=== PATIENT | male | born 1960 | race Caucasian/White ===

== ENCOUNTER 2021-02-17 23:36 | Inpatient (IN) | payer OTHER ==
[~2021-02-17] VITALS: Ht 190.5 cm; Wt 69.1 kg
[2021-02-18 00:21] LABS: BASOPHILS ABSOLUTE AUTO 0.16 K/mm3 (0.00-0.23); BASOPHILS PERCENT AUTO 1 % (0-2); EOSINOPHILS ABSOLUTE AUTO 0.18 K/mm3 (0.00-0.68); EOSINOPHILS PERCENT AUTO 1 % (0-6); Hematocrit 41.2 % (37.0-53.0); IMMATURE GRAN ABSOLUTE AUTO 0.57 K/mm3 (0.00-0.10); IMMATURE GRAN PERCENT AUTO 2 % (0-1); LYMPHOCYTES PERCENT AUTO 9 % (21-46); MONOCYTES ABSOLUTE AUTO 1.65 K/mm3 (0.16-1.47); MONOCYTES PERCENT AUTO 6 % (4-13); Mean Corpuscular HGB 31.5 pg (26.0-34.0); Mean Corpuscular Volume 93 fL (80-100); Mean Platelet Volume 9.3 fL (9.1-12.4); NEUTROPHILS ABSOLUTE AUTO 21.13 K/mm3 (1.96-9.15); NEUTROPHILS PERCENT AUTO 81 % (41-73); Platelet Count 307 K/mm3 (150-400); RDW Coefficient Variation 13.2 % (11.7-14.2); RDW Standard Deviation 45.4 fL (35.1-46.3); Red Blood Cell Count 4.44 M/mm3 (4.30-5.90); White Blood Cell Count 26.09 K/mm3 (4.00-11.30)
[2021-02-18 00:35] LABS: Alanine Aminotransfer (ALT/SGP 39 U/L (12-78); Albumin, Blood 3.8 g/dL (3.4-5.0); Albumin/Globulin Ratio 1.1 (0.8-1.8); Alk Phos 107 U/L (50-136); Anion Gap 6 mmol/L (6-16); Aspartate Aminotrans (AST/SGOT 38 U/L (12-37); Bilirubin, Total 0.2 mg/dL (0.1-1.0); Blood Urea Nitrogen 21 mg/dL (8-24); Bun/Creatinine Ratio 20.2 (12.0-20.0); CO2, Blood 30 mmol/L (21-32); Calcium, Blood 9.3 mg/dL (8.5-10.1); Chloride, Blood 106 mmol/L (98-108); Creatinine, Blood 1.04 mg/dL (0.60-1.20); Ethanol (Alcohol), Blood, Med <3 mg/dL; Globulin, Blood 3.5 g/dL (2.2-4.0); Glomerular Filtration Rate >60 (60-); Glucose, Blood 140 mg/dL (70-99); International Normalized Ratio 1.02; Potassium, Blood 3.6 mmol/L (3.5-5.5); Sodium, Blood 142 mmol/L (136-145); Total Protein, Blood 7.3 g/dL (6.4-8.2)
[2021-02-18 04:47] LABS: SARS-Cov-2 (COVID-19) PCR, MMC NEGATIVE (NEGATIVE)
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
[2021-02-18 12:06] LABS: U Amphetamine Screen Not Detected; U Barbituate Screen Not Detected; U Benzodiazapine Screen Not Detected; U Cocaine Screen Not Detected; U Methadone Screen Not Detected; U Methamphetamine Screen Not Detected
[2021-02-18 12:07] LABS: U Buprenorphine Screen Not Detected; U Cannabinoids Screen DETECTED; U Opiates Screen DETECTED; U Oxycodone Screen Not Detected; U Phencyclidine Screen Not Detected; U Propoxyphene Screen Not Detected
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
[2021-02-19 05:24] LABS: Hematocrit 31.9 % (37.0-53.0); Hemoglobin 10.7 g/dL (13.5-17.5); Mean Corpuscular HGB Conc 33.5 g/dL (31.5-36.5); Mean Corpuscular Volume 93 fL (80-100); Platelet Count 152 K/mm3 (150-400); RDW Coefficient Variation 12.9 % (11.7-14.2); RDW Standard Deviation 43.9 fL (35.1-46.3); Red Blood Cell Count 3.45 M/mm3 (4.30-5.90); White Blood Cell Count 15.63 K/mm3 (4.00-11.30)
[2021-02-19 05:41] LABS: Anion Gap 4 mmol/L (6-16); Blood Urea Nitrogen 17 mg/dL (8-24); Bun/Creatinine Ratio 19.5 (12.0-20.0); CO2, Blood 28 mmol/L (21-32); Chloride, Blood 105 mmol/L (98-108); Creatinine, Blood 0.87 mg/dL (0.60-1.20); Glomerular Filtration Rate >60 (60-); Glucose, Blood 109 mg/dL (70-99); Sodium, Blood 137 mmol/L (136-145)
--- NOTE | 2021-02-19 06:26 | NUR ---
SHIFT SUMMARY PT RESTED WELL T/O NIGHT. AAOX4. DISCOMFORT CONTROLLED WITH 1 ROXICODONE Q4-6P + TORADOL Q6P. NO NAUSEA/EMESIS. LUNG SOUNDS DIMINISHED T/O, 4L VIA NC. CHEST TUBE TO LEFT CHEST WALL, SECURE WITH SCANT SS DRAINAGE OUT. PPP, DENIES N/T, MOVES ALL TOES/FINGERS WELL. PT ABLE TO REPOSITION SELF IN BED, CONTINUE TO ENCOURAGE + DEEP BREATHING TOLERATED. AWAITING CHEST X-RAY THIS AM. NO ACUTE CHANGES OVER NIGHT. PT CURRENTLY RESTING IN BED WITH CALL LIGHT IN REACH.
[2021-02-19 15:59] LABS: Hematocrit 30.3 % (37.0-53.0); Hemoglobin 10.2 g/dL (13.5-17.5); Mean Corpuscular HGB 31.6 pg (26.0-34.0); Mean Corpuscular HGB Conc 33.7 g/dL (31.5-36.5); Mean Corpuscular Volume 94 fL (80-100); Mean Platelet Volume 9.8 fL (9.1-12.4); Platelet Count 153 K/mm3 (150-400); RDW Coefficient Variation 12.9 % (11.7-14.2); RDW Standard Deviation 44.8 fL (35.1-46.3); Red Blood Cell Count 3.23 M/mm3 (4.30-5.90); White Blood Cell Count 14.96 K/mm3 (4.00-11.30)
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
--- NOTE | 2021-02-20 04:30 | NUR ---
SHIFT SUMMARY PT RESTED WELL T/O NIGHT. AAOX4. DISCOMFORT CONTROLLED WITH ROXICODONE Q4H + TORADOL Q6H. NO NAUSEA/EMESIS. 3.5L VIA NC, SHALLOW BREATHS R/T DISCOMFORT, CHEST TUBE WITH MINIMAL SS OUT. CONTINUE TO ENCOURAGE DEEP BREATHING CHRISTOFER. DENIES N/T BLE, MOVES ALL TOES/FINGERS WELL, ALL PULSES PALPABLE ON EXTREMITIES. ABRASIONS WITH PETROLIUM GAUZE + OTHERS ALISON. NO ACUTE CHANGES OVER NIGHT. PT CURRENTLY RESTING WELL IN BED WITH CALL LIGHT IN REACH.
[2021-02-20 16:37] LABS: Hematocrit 24.3 % (37.0-53.0); Hemoglobin 8.3 g/dL (13.5-17.5)
--- NOTE | 2021-02-20 19:55 | NUR ---
RECEIVED BEDSIDE REPORT W/DAY RN. PT REP FEELING SOB. PT HAD REMOVED NC. SATS CHECKED, READING 74 ON RA, HR 120'S. 6L NC REPLACED, SATS UNABLE TO RETURN >85%. CHEST TUBE ASSESSED, BUBBLING AND FLUCTUATION PRESENT. SITE APPEARS WNL. 15L OXYMIZER PLACED, O2 INC TO 94%, O2 DECREASED TO 12L, SATS 91-92%. WILL MONITOR AND TIRTATE PRN. PT REP LESS AOB AFTER O2 REPLACED. PT EDUCATED TO KEEP O2 IN PLACE.
[2021-02-20 21:48] LABS: Hematocrit 22.6 % (37.0-53.0); Hemoglobin 7.9 g/dL (13.5-17.5)
[2021-02-21 04:50] LABS: Hematocrit 22.1 % (37.0-53.0); Hemoglobin 7.8 g/dL (13.5-17.5); Mean Corpuscular HGB 31.6 pg (26.0-34.0); Mean Corpuscular HGB Conc 35.3 g/dL (31.5-36.5); Mean Corpuscular Volume 90 fL (80-100); Mean Platelet Volume 10.1 fL (9.1-12.4); Platelet Count 182 K/mm3 (150-400); RDW Coefficient Variation 12.4 % (11.7-14.2); RDW Standard Deviation 40.8 fL (35.1-46.3); Red Blood Cell Count 2.47 M/mm3 (4.30-5.90); White Blood Cell Count 17.84 K/mm3 (4.00-11.30)
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
--- NOTE | 2021-02-21 07:47 | NUR ---
2 TABLETS OF 2.5MG MARINOL WASTED W/HAMILTON MONSALVE RN @ [id number].
--- NOTE | 2021-02-21 07:48 | NUR ---
WASTE OF MARINOL: PATIENT DECLINED SCHEDULED MARINOL THIS MORNING. WASTED 5MG (TWO TABLETS OF 2.5MG) WITH IMER CARREON AT 07:45.
--- NOTE | 2021-02-21 18:06 | NUR ---
SHIFT SUMMARY PT HAS DONE WELL T/O SHIFT. CHEST TUBE IN PLACE L LATERAL CHEST TO SX W/MINIMAL SS OUTPUT PRESENT IN CANISTER-NO CREPATIS T/O SHIFT. PAIN MANAGED PER EMAR. PT WORKED WITH THERAPY, UP TO CHAIR FOR LUNCH. PT HAS DECLINED MARINOL T/O SHIFT.
--- NOTE | 2021-02-21 19:30 | NUR ---
PT SITTING IN BED, 5LO2 NC IN PLACE, RESP E/U. PT REP PAIN W/DEEP BREATHS, BUT DENIES SOB AT REST. CT TO SX, BUBBLING AND FLUCTUATING, NO DRNG IN TUBING, NO CRESPIUS NOTED. PT REP PAIN CHRISTOFER AT THIS TIME.
--- NOTE | 2021-02-21 22:48 | NUR ---
PT IS A/O X3 AND IN GOOD SPIRITS THIS EVENING. OXYGEN AT 5L PER NC, SATS 90-92%. CHEST TUBE TO LEFT CHEST, DRESSING CDI. CHEST TUBE TIDALLING WELL WITH NO AIR LEAKS. CBS. STILL HAS DISCOMFORT WITH TAKING IN DEEPER BREATHS. PT ENCOURAGED TO USE I/S. PER CXR, BETTER AERATION TO LLL TODAY COMPARED TO YEST. STARTED IV UNASYN TODAY. BT'S POS X4. NO GI UPSET, NO N/V. REPORTS LAST BM BEFORE HOSPITALIATION. URINATING W/O DIFFICULTY. EATING WELL. EDUCATED AND REMINDED PT TO ASK FOR ASSISTANCE WHEN/IF HE WANTS TO GET OOB.
--- NOTE | 2021-02-22 06:47 | NUR ---
CHEST TUBE TO SUCTION. NO AIR LEAKS. TIDALLING WELL. CT INSERTION SITE COVERED WITH GAUZE DRSG. DRSG CDI. PAIN MANAGED WELL DURING THE NIGHT WITH TORADOL AND OXYCODONE. ON IV ABX Q6H.
--- NOTE | 2021-02-22 17:16 | NUR ---
SUMMARY NO ACUTE CHANGES T/O SHIFT. PT WORKED W/THERAPY AND SAT UP IN CHAIR THIS AM. PT PAINFUL. MEDICATED PER ORDERS FOR PAIN TO L SHOULDER/L SIDE. TOLERATING PO INTAKE. CT TO LWS. SS DRAINAGE NOTED. CALL LIGHT IN REACH.
--- NOTE | 2021-02-22 19:05 | NUR ---
report given to oncoming shift.
--- NOTE | 2021-02-23 06:52 | NUR ---
SHIFT SUMMARY POD3 L CHEST TUBE PLACEMENT, A/O X4, VSS, TOLERATING PO, SBA c AMBULATION, PAIN MANAGED PER EMAR, CHEST TUBE TO WATER SEAL T/O SHIFT, NO CREPITUS NOTED, DIMINISHED LLL c EXPIRATORY WHEEZE, PT DENIES SOB. NO ACUTE EVENTS THIS SHIFT. CALL LIGHT IN REACH, WILL CTM AND REPORT TO DAY RN.
--- NOTE | 2021-02-23 14:19 | NUR ---
DR KOENIG HERE TO SEE PATIENT. CHEST TUBE REMOVED BY DR KOENIG AFTER PATIENT MEDICATED WITH 0.5 MG IV DILAUDID. PURSE STRING SUTURE, 4X4 GAUZE AND TEGADERM APPLIED TO CHEST TUBE REMOVAL SITE. PATIENT DENIES ANY INCREASE IN PAIN OR SOB AFTER TUBE REMOVED. PT RESTING WITH EYES CLOSED, REPORTS PAIN IS MUCH DECREASED
[2021-02-23] MEDS ORDERED: OXAYDO5 M1 PO (17:23)
--- NOTE | 2021-02-23 18:52 | NUR ---
SHIFT SUMMARY PT POD #3 FOR L CHEST TUBE PLACEMENT. CHEST TUBE REMOVED AND X-RAY OBTAINED. NO ABNORMAL FINDINGS ON THE X-RAY AND PT CLEARED FOR DISCHARGE. MEDICATED PER EMR AND TOLERATING ORAL PAIN MEDICATION. AMBULATES WITH A 1 PERSON/SBA. DISCHARGE ORDERS IN CHART. VSS. WILL REPORT TO ONCOMING RN.
--- NOTE | 2021-02-23 21:41 | NUR ---
PT REQ TO D/C IN AM R/T UNABLE TO [employer] FOR PAIN MEDS. DR KOENIG NOTIFIED; OK W/PLAN.
--- NOTE | 2021-02-24 10:11 | NUR ---
DISCHARGE PT DISCHARGED HOME FROM UNIT AT APROX 1012. PT GIVEN WRITTEN AND VERBAL DISCHARGE INSTRUCTIONS AND VERBALIZED UNDERSTANDING. WHEELCHAIR ASSIST TO CAR. WRITTEN RX FOR PAIN MEDICATION GIVEN TO PT, COPY IN CHART.
== END 2021-02-24 10:15 | disposition home or self-care (01) | DRG 964 ==
LOC: ER 23:36 → SURS 02-18 02:18
PROVIDERS: Student in an Organized Health Care Education/Training Program; ADMIT Surgery
PROC: 0W9B30Z Drainage of Left Pleural Cavity with Drainage Device, Percutaneous Approach (ICD-10-PCS; principal; 2021-02-20)
DX: S27.1XXA Traumatic hemothorax, initial encounter (principal); S72.112A Displaced fracture of greater trochanter of left femur, initial encounter for closed fracture; S22.42XA Multiple fractures of ribs, left side, initial encounter for closed fracture; S27.321A Contusion of lung, unilateral, initial encounter; S32.10XA Unspecified fracture of sacrum, initial encounter for closed fracture; Z20.822 Contact with and (suspected) exposure to COVID-19; V29.49XA Motorcycle driver injured in collision with other motor vehicles in traffic accident, initial encounter; Y93.89 Activity, other specified; Y92.410 Unspecified street and highway as the place of occurrence of the external cause; I10 Essential (primary) hypertension; J44.9 Chronic obstructive pulmonary disease, unspecified; S42.102A Fracture of unspecified part of scapula, left shoulder, initial encounter for closed fracture; S42.002A Fracture of unspecified part of left clavicle, initial encounter for closed fracture; D64.9 Anemia, unspecified
CPT/HCPCS: 32551; 36415; 70450; 71045; 71046; 71260; 71275; 72126; 73060; 73502; 73552; 73562-LT; 74177; 80048; 80053; 83735; 84145; 85014; 85018; 85025; 85027; 85610; 86850; 86900; 86901; 87040; 93005; 93010; 96361; 96374; 96375; 96376; 97110; 97162; 97167; 97530; 97535; 99285-25; A9270; G0480; J0295; J1170; J1650; J1885; J3010; J7030; Q0167; Q9967; U0004

== ENCOUNTER 2024-08-10 19:47 | Emergency (ER) | payer OTHER ==
[~2024-08-10] VITALS: Ht 190.5 cm; Wt 63.5 kg
[~2024-08-10 19:47] MED LIST: OXAYDO5 M1 PO
[2024-08-10 20:58] LABS: BASOPHILS ABSOLUTE AUTO 0.08 K/mm3 (0.00-0.23); BASOPHILS PERCENT AUTO 1 % (0-2); EOSINOPHILS ABSOLUTE AUTO 0.02 K/mm3 (0.00-0.68); EOSINOPHILS PERCENT AUTO 0 % (0-6); Hematocrit 47.5 % (37.0-53.0); Hemoglobin 16.5 g/dL (13.5-17.5); IMMATURE GRAN ABSOLUTE AUTO 0.06 K/mm3 (0.00-0.10); IMMATURE GRAN PERCENT AUTO 0 % (0-1); LYMPHOCYTES ABSOLUTE AUTO 1.09 K/mm3 (0.84-5.20); LYMPHOCYTES PERCENT AUTO 6 % (21-46); MONOCYTES ABSOLUTE AUTO 1.15 K/mm3 (0.16-1.47); MONOCYTES PERCENT AUTO 7 % (4-13); Mean Corpuscular HGB 31.3 pg (26.0-34.0); Mean Corpuscular HGB Conc 34.7 g/dL (31.5-36.5); Mean Corpuscular Volume 90 fL (80-100); Mean Platelet Volume 9.6 fL (9.1-12.4); NEUTROPHILS PERCENT AUTO 86 % (41-73); Platelet Count 277 K/mm3 (150-400); RDW Coefficient Variation 12.8 % (11.7-14.2); RDW Standard Deviation 42.4 fL (35.1-46.3); Red Blood Cell Count 5.27 M/mm3 (4.30-5.90)
[2024-08-10 21:22] LABS: Albumin, Blood 4.1 g/dL (3.4-5.0); Albumin/Globulin Ratio 0.9 (0.8-1.8); Bilirubin, Total 1.3 mg/dL (0.1-1.0); Bun/Creatinine Ratio 15.1 (12.0-20.0); Calcium, Blood 9.6 mg/dL (8.5-10.1); Creatinine, Blood 0.86 mg/dL (0.60-1.20); Globulin, Blood 4.4 g/dL (2.2-4.0); Total Protein, Blood 8.5 g/dL (6.4-8.2)
[2024-08-10 22:36] LABS: Source, Urine Clean Catch
[2024-08-10 22:52] LABS: Appearance, Urine Clear (Clear); Bilirubin, Urine Neg (Neg); Blood, Urine Neg (Neg); Color, Urine Amber (P-Yellow); Glucose Qualitative, Urine Neg (Neg); Ketones, Urine 3+ (Neg); Leukocyte Esterase, Urine 1+ (Neg); Nitrite, Urine Neg (Neg); Protein, Urine 1+ (Neg); Urobilinogen, Urine 1+ (Normal)
[2024-08-10 23:01] LABS: Bacteria Few /hpf; Mucus Light (0-Heavy); Red Blood Cells, Urine 0-2 /hpf (0-2); Squamous Epithelial Cells Few /hpf (Few); White Blood Cells, Urine 0-2 /hpf (0-5)
[2024-08-10] MEDS ORDERED: Trimethoprim/Sulfamethoxazole DS Tab PO ONE (23:35)
[2024-08-10] MEDS ORDERED: MetroNIDAZOLE 500 MG Tab PO ONE (23:35)
[2024-08-11] VITALS: BP 107/77
[2024-08-11] MEDS ORDERED: METR500 PO (00:02)
[2024-08-11] MEDS ORDERED: SULTRIDS PO (00:02)
== END 2024-08-11 00:10 | disposition home or self-care (01) ==
LOC: ER 19:47
PROVIDERS: Student in an Organized Health Care Education/Training Program
DX: K57.32 Diverticulitis of large intestine without perforation or abscess without bleeding (principal); I10 Essential (primary) hypertension; J44.9 Chronic obstructive pulmonary disease, unspecified; F17.210 Nicotine dependence, cigarettes, uncomplicated
CPT/HCPCS: 71046; 74176; 80053; 81001; 83690; 84484; 85025; 87086; 93005; 93010; 99284-25; A9270